=== PATIENT | male | born 1935 | race Hispanic/Latino ===

== ENCOUNTER 2017-01-27 17:23 | Emergency (ER) | payer MEDICARE, MEDICAID ==
[~2017-01-27 17:23] MED LIST: ISOVUE-370 76%-LOCM 1 ML ONE
--- NOTE | 2017-01-27 19:03 | RAD ---
PORTABLE CHEST ONE VIEW 01/27/17 at 6:24 p.m. HISTORY: Chest pain. FINDINGS/IMPRESSION: The heart size is prominent. The aorta is tortuous. A left sided pacemaker device is present. There is patchy opacity in the right lower lung. No pneumothoraces or large effusions are seen. Possibilit y of pneumonia should be considered. POS: [facility]
--- NOTE | 2017-01-27 19:06 | ULT ---
VENOUS DOPPLER ULTRASOUND OF THE RIGHT LOWER EXTREMITY: 01/27/17 HISTORY: Right lower extremity edema and pain. TECHNIQUE: Lim scale ultrasound with color flow and spectral doppler imaging of the deep venous system of the right lower extremity is performed. FINDINGS: There is good flow, compression, and augmentation noted in the right common femoral, femoral, deep f emoral, popliteal, posterior tibial and greater saphenous veins. IMPRESSION: No evidence of DVT in the right lower extremity. POS: [facility]
[2017-01-27 19:08] LABS: ALT (SGPT) 15 U/L (8-55); AST (SGOT) 25 U/L (5-34); Alkaline Phosphatase 92 U/L (40-150); Anion Gap 14 mmol/L (10-20); BUN (Urea Nitrogen) 19 mg/dL (8.4-25.7); Bilirubin, Total 0.4 mg/dL (0.2-1.2); Calc. Creatinine Clearance 0 mL/min (70-130); Calcium 9.1 mg/dL (7.8-10.44); Carbon Dioxide 27 mmol/L (23-31); Chloride 98 mmol/L (98-107); Estimated GFR-MDRD 72; Globulin 4.5 g/dL (2.4-3.5); Protein, Total 7.8 g/dL (5.8-8.1)
[2017-01-27 19:12] LABS: #Eosinphils 0.2 thou/uL (0.0-0.7); #Lymphocytes 1.2 thou/uL (1.20-3.40); #Monocytes 0.8 thou/uL (0.11-0.59); #Neutrophils 5.1 thou/uL (1.40-6.50); %Basophils 0.1 % (0.0-1.0); %Eosinophils 2.3 % (0.0-10.0); %Lymphocytes 16.5 % (21.0-51.0); %Monocytes 11.5 % (0.0-10.0); Hematocrit 32.2 % (42.0-52.0); Mean Platelet Volume 6.8 fL (7.4-10.4); Red Blood Cell (RBC) Count 3.35 mill/uL (4.70-6.10); White Blood Cell (WBC) Count 7.3 thou/uL (4.8-10.8)
[2017-01-27 19:13] LABS: Troponin I 0.015 ng/mL (< 0.028)
[2017-01-27 19:19] LABS: PTT 47.9 SEC (22.9-36.1); Prothrombin Time 15.8 SEC (12.0-14.7)
[2017-01-27] MEDS ORDERED: cefTRIAXone\\ROCEPHIN 1 GM VIAL ONE (21:47)
[2017-01-27] MEDS ORDERED: Sodium Chloride 0.9% 100 ML ONE (21:47)
[2017-01-27] MEDS ORDERED: Azithromycin 500 MG VIAL ONE (22:26)
--- NOTE | 2017-01-27 23:38 | CT ---
CT PULMONARY ANGIOGRAM WITH IV CONTRAST AND 3D POSTPROCESSING 01/27/17 HISTORY: Chest pain. FINDINGS: There is good contrast opacification of the pulmonary arterial vasculature without filling defects t o suggest pulmonary embolism. There are vascular calcifications without thoracic aortic aneurysmal d issection. Multiple prominent subcentimeter mediastinal lymph nodes are seen. No pericardial or pleu ral effusions are identified. There is consolidation in the right lower lobe. No pneumothoraces are seen. There are degenerative changes in the spine. IMPRESSION: No CT evidence of pulmonary embolism. Right lower lobe consolidation. A followup exam should be obta ined after treatment for pneumonia to exclude underlying mass. POS: [facility]
== END 2017-01-27 23:42 | disposition home or self-care (01) ==
LOC: ERS 17:23
DX: J18.9 Pneumonia, unspecified organism (principal); I50.9 Heart failure, unspecified; I48.91 Unspecified atrial fibrillation; Z86.711 Personal history of pulmonary embolism; Z79.899 Other long term (current) drug therapy
CPT/HCPCS: 36415; 71010; 71275; 80053; 82553; 83735; 83880; 84484; 85025; 85610; 85730; 87040; 93005; 96361; 96365; 96367; J0456; J0696; J7050